=== PATIENT | male | born 1945 | race Caucasian/White ===

== ENCOUNTER 2023-03-28 10:12 | Inpatient (IN) | payer MEDICARE, OTHER ==
[~2023-03-28] VITALS: Ht 177 cm; Wt 78.9 kg
--- NOTE | 2023-03-28 10:18 | ED General ---
General Chief Complaint: Altered Mental Status Stated Complaint: UTI History of Present Illness Date Seen by Provider: Mar 28, 2023 Time Seen by Provider: 10:18 Initial Comments 78 yr M with PMH of multiple sclerosis/BPH/HTN/gout, is sent here by PCP from [facility] with c/o lethargy and fatigue, and generalized weakness. [facility] staff reported that patient smelled like urine and that the urine looked very cloudy. Patient has multiple sclerosis and has chronic baseline gait issues due to this, however today patient was moving much slower than usual and needing assistance so staff was concerned and contacted the PCP, who recommended he be taken to the ER for complete work-up. In the ER patient is AO x3 and able to answer all questions and follow all commands. Patient does not appear to be confused at all. Patient does appear tired however. Denies chest pain, palpitations, dizziness, abdominal pain, diarrhea, fever and chills, cough. Allergies and Home Medications Allergies Coded Allergies: Iodinated Contrast Media (Verified Allergy, Unknown, 03/28/23) Patient Home Medication List Home Medication List Reviewed: Yes Review of Systems Review of Systems Constitutional: malaise, weakness (Generalized) EENTM: no symptoms reported Respiratory: no symptoms reported Cardiovascular: no symptoms reported Gastrointestinal: no symptoms reported Genitourinary: no symptoms reported Musculoskeletal: no symptoms reported Skin: no symptoms reported Psychiatric/Neurological: No Symptoms Reported Hematologic/Lymphatic: No Symptoms Reported Immunological/Allergic: no symptoms reported Physical Exam Vital Signs Vital Signs - First Documented 03/28/23 10:34 Temp 36.3 Pulse 105 Resp 16 B/P (MAP) 116/84 (95) Pulse Ox 94 O2 Delivery Room Air Capillary Refill : Height, Weight, BMI Height: '" Weight: lbs. oz. kg; BMI Method: General Appearance: No Apparent Distress, WD/WN, Thin HEENT: PERRL/EOMI, Normal ENT Inspection Neck: Full Range of Motion, Normal Inspection, Non Tender, Supple Respiratory: Chest Non Tender, Lungs Clear, Normal Breath Sounds, No Accessory Muscle Use Cardiovascular: Regular Rate, Rhythm, Other (2+ bilateral pitting pedal edema) Gastrointestinal: Normal Bowel Sounds, Non Tender, Soft Back: No CVA Tenderness Extremity: Normal Range of Motion Neurologic/Psychiatric: Alert, Oriented x3, No Motor/Sensory Deficits, Normal Mood/Affect, coach operator II-XII Norm as Tested Skin: Normal Color Focused Exam Lactate Level 03/28/23 10:32: Lactic Acid Level 1.99 Lactic Acid Level Laboratory Tests Test 03/28/23 10:32 Lactic Acid Level 1.99 MMOL/L (0.50-2.00) Progress/Results/Core Measures Suspected Sepsis SIRS Temperature: Pulse: Respiratory Rate: Laboratory Tests 03/28/23 10:32: White Blood Count 64.9*H Blood Pressure / Mean: 03/28/23 10:32: Lactic Acid Level 1.99 Laboratory Tests 03/28/23 10:32: Creatinine 0.82, INR Comment 1.0, Platelet Count 281, Total Bilirubin 0.7 Results/Orders Lab Results Laboratory Tests Test 03/28/23 10:27 03/28/23 10:32 Range/Units Urine Color YELLOW Urine Clarity TURBID Urine pH 6.0 5-9 Urine Specific [place] 1.025 H 1.016-1.022 Urine Protein 2+ H NEGATIVE Urine Glucose (UA) NEGATIVE NEGATIVE Urine Ketones TRACE H NEGATIVE Urine Nitrite NEGATIVE NEGATIVE Urine Bilirubin NEGATIVE NEGATIVE Urine Urobilinogen 1.0 < = 1.0 MG/DL Urine Leukocyte Esterase 2+ H NEGATIVE Urine RBC (Auto) 3+ H NEGATIVE Urine RBC NONE /HPF Urine WBC TNTC H /HPF Urine Squamous Epithelial Cells 2-5 /HPF Urine Crystals NONE /LPF Urine Bacteria LARGE H /HPF Urine Casts NONE /LPF Urine Mucus NEGATIVE /LPF Urine Culture Indicated YES White Blood Count 64.9 *H 4.3-11.0 10^3/uL Red Blood Count 3.41 L 4.30-5.52 10^6/uL Hemoglobin 10.9 L 13.3-17.7 g/dL Hematocrit 34 L 40-54 % Mean Corpuscular Volume 99 80-99 fL Mean Corpuscular Hemoglobin 32 25-34 pg Mean Corpuscular Hemoglobin Concent 32 32-36 g/dL Red Cell Distribution Width 12.3 10.0-14.5 % Platelet Count 281 130-400 10^3/uL Mean Platelet Volume 9.9 9.0-12.2 fL Immature Granulocyte % (Auto) 0 % Neutrophils (%) (Auto) 17 L 42-75 % Lymphocytes (%) (Auto) 80 H 12-44 % Monocytes (%) (Auto) 2 0-12 % Eosinophils (%) (Auto) 0 0-10 % Basophils (%) (Auto) 0 0-10 % Neutrophils # (Auto) 10.8 H 1.8-7.8 10^3/uL Lymphocytes # (Auto) 52.1 H 1.0-4.0 10^3/uL Monocytes # (Auto) 1.6 H 0.0-1.0 10^3/uL Eosinophils # (Auto) 0.1 0.0-0.3 10^3/uL Basophils # (Auto) 0.1 0.0-0.1 10^3/uL Immature Granulocyte # (Auto) 0.3 H 0.0-0.1 10^3/uL Neutrophils % (Manual) 28 % Lymphocytes % (Manual) 68 % Monocytes % (Manual) 2 % Eosinophils % (Manual) 2 % Prothrombin Time 13.9 12.2-14.7 SEC INR Comment 1.0 0.8-1.4 Activated Partial Thromboplast Time 34 24-35 SEC Sodium Level 142 135-145 MMOL/L Potassium Level 4.1 3.6-5.0 MMOL/L Chloride Level 106 98-107 MMOL/L Carbon Dioxide Level 23 21-32 MMOL/L Anion Gap 13 5-14 MMOL/L Blood Urea Nitrogen 29 H 7-18 MG/DL Creatinine 0.82 0.60-1.30 MG/DL Estimat Glomerular Filtration Rate 90 BUN/Creatinine Ratio 35 Glucose Level 149 H 70-105 MG/DL Lactic Acid Level 1.99 0.50-2.00 MMOL/L Calcium Level 9.3 8.5-10.1 MG/DL Corrected Calcium 9.6 8.5-10.1 MG/DL Magnesium Level 2.2 1.6-2.4 MG/DL Total Bilirubin 0.7 0.1-1.0 MG/DL Aspartate Amino Transf (AST/SGOT) 35 H 5-34 U/L Alanine Aminotransferase (ALT/SGPT) 45 0-55 U/L Alkaline Phosphatase 174 H 40-136 U/L Troponin I < 0.30 <0.30 NG/ML Total Protein 7.5 6.4-8.2 GM/DL Albumin 3.6 3.2-4.5 GM/DL My Orders Orders - JULIETH BOOTH MD Cbc With Automated Diff (03/28/23 10:18) Comprehensive Metabolic Panel (03/28/23 10:18) Lactic Acid Analyzer (03/28/23 10:18) Magnesium (03/28/23 10:18) Protime With Inr (03/28/23 10:18) Partial Thromboplastin Time (03/28/23 10:18) Ua Culture If Indicated (03/28/23 10:18) Troponin I Fs (03/28/23 10:18) Chest 1 View Ap/Pa Only (03/28/23 10:19) Ct Head Wo (03/28/23 10:35) Ed Iv/Invasive Line Start (03/28/23 10:42) Ns Iv 1000 Ml (Sodium Chloride 0.9%) (03/28/23 10:45) Continuous Ekg Monitoring (03/28/23 10:43) Ekg Tracing (03/28/23 10:43) Manual Differential (03/28/23 10:32) Urine Culture (03/28/23 10:27) Piperacillin Sodium/Tazobactam (Zosyn Vi (03/28/23 11:15) Blood Culture (03/28/23 11:06) Ed Admission (Communication) (03/28/23 12:20) Medications Given in ED Current Medications Medications Dose Ordered Sig/Theresa Route Start Time Stop Time Status Last Admin Dose Admin Piperacillin Sod/ Tazobactam Sod 4.5 gm/Sodium Chloride 100 ml @ 200 mls/hr ONCE ONCE IV 03/28/23 11:15 03/28/23 11:44 DC 03/28/23 11:22 200 MLS/HR Vital Signs/I&O 03/28/23 10:34 Temp 36.3 Pulse 105 Resp 16 B/P (MAP) 116/84 (95) Pulse Ox 94 O2 Delivery Room Air Capillary Refill : Progress Note : Progress Note 1. GENERALIZED WEAKNESS due to: ACUTE CYSTITIS WITH HEMATURIA & PNEUMONIA, SEPSIS: - CT HEAD: no acute changes - CXR: Scattered patchy bilateral perihilar airspace opacities concerning for pneumonia. - CBC/ CMP: WBC is 64.9 with a left shift - Lactic acid is 1.99 which is borderline normal, but will admit for urosepsis since the white count is still high with a borderline lactic, and pneumonia - EKG: Non-ischemic - Troponin: undetectable - Blood culture sent - UA: Positive for trace ketones, leukocyte esterase, RBC, WBC, and bacteria - NS IVF bolus STAT. pt received 2 L total in ER - Zosyn iv STAT -Discussed with hospitalist and accepted for admission to ICU ECG Initial ECG Impression Date: Mar 28, 2023 Initial ECG Impression Time: 10:48 Initial ECG Rate: 93 Initial ECG Rhythm: Normal Sinus Initial ECG Intervals: Normal Initial ECG Impression: Normal Initial ECG Comparisson: No Previous ECG Available Diagnostic Imaging Diagonstic Imaging: Xray, CT Plain Films/CT/US/NM/MRI: chest, head Comments [facility] [place], [place] NAME: RAULITO GAUTHIER [facility] REC#: [id number] PT STATUS: REG ER : 1945 PHYSICIAN: JULIETH BOOTH MD ADMIT DATE: 03/28/23/ER FS Draft Date of Exam:03/28/23 CHEST 1 VIEW AP/PA ONLY INDICATION: Weakness. UTI. COMPARISON: None. FINDINGS: Single frontal radiographic view of the chest was obtained and demonstrates patchy bilateral perihilar opacities. No large effusion or pneumothorax is seen. Cardiac silhouette and pulmonary vasculature are within normal limits. Osseous structures show no gross acute abnormalities IMPRESSION: 1. Scattered patchy bilateral perihilar airspace opacities concerning for pneumonia. Follow-up to resolution is advised. Dictated on workstation # [id number] Dict: 03/28/23 1121 Trans: 03/28/23 1125 [facility] [id number] Interpreted by: DIANA SERRANO MD Electronically signed by: [facility] [place] [place] NAME: RAULITO GAUTHIER [facility] REC#: [id number] PT STATUS: REG ER : 1945 PHYSICIAN: JULIETH BOOTH MD ADMIT DATE: 03/28/23/ER FS Draft Date of Exam:03/28/23 CT HEAD WO PROCEDURE: CT head without contrast. TECHNIQUE: Multiple contiguous axial images were obtained through the brain without the use of intravenous contrast. Auto Exposure Controls were utilized during the CT exam to meet ALARA standards for radiation dose reduction. INDICATION: Weakness. No prior studies are available for comparison. Ventricles and sulci are prominent consistent with cerebral volume loss. Mild periventricular low attenuation is noted consistent with chronic microvascular ischemia. No sulcal effacement or midline shift is identified. No acute intra-axial or extra-axial hemorrhage is detected. Cisterns are patent. Visualized paranasal sinuses are clear. IMPRESSION: Chronic changes. No acute intracranial process is detected. Dictated on workstation # [id number] Dict: 03/28/23 1118 Trans: 03/28/23 1124 [facility] [id number] Interpreted by: ROMEL BARLOW MD Electronically signed by: Departure Communication (Admissions) Time/Spoke to Admitting Phy: 12:[address] Moses, hospitalist, and will admit to ICU, inpatient. Impression Primary Impression: Acute cystitis with hematuria Additional Impressions: Sepsis Qualified Codes: A41.9 - Sepsis, unspecified organism CAP (community acquired pneumonia) Qualified Codes: J18.9 - Pneumonia, unspecified organism Disposition: 30 STILL A PATIENT Condition: Stable Admissions Decision to Admit Reason: Admit from ER (General) Decision to Admit/Date: Mar 28, 2023 Time/Decision to Admit Time: 11:30 Transfer Method of Transfer: EMS Departure-Patient Inst. Referrals: GUMARO KAMARA MD (PCP) Primary Care Physician JULIETH BOOTH MD Mar 28, 2023 10:18
[2023-03-28 10:45] LABS: BASOPHILS # (AUTO) 0.1 10^3/uL (0.0-0.1); BASOPHILS % (AUTO) 0 % (0-10); EOSINOPHILS # (AUTO) 0.1 10^3/uL (0.0-0.3); EOSINOPHILS % (AUTO) 0 % (0-10); HEMATOCRIT 34 % (40-54); HEMOGLOBIN 10.9 g/dL (13.3-17.7); LYMPHOCYTES # (AUTO) 52.1 10^3/uL (1.0-4.0); LYMPHOCYTES % (AUTO) 80 % (12-44); MEAN CORPUSCULAR HEMOGLOBIN 32 pg (25-34); MEAN CORPUSCULAR HGB CONC 32 g/dL (32-36); MEAN CORPUSCULAR VOLUME 99 fL (80-99); MEAN PLATELET VOLUME 9.9 fL (9.0-12.2); MONOCYTES # (AUTO) 1.6 10^3/uL (0.0-1.0); MONOCYTES % (AUTO) 2 % (0-12); NEUTROPHILS # (AUTO) 10.8 10^3/uL (1.8-7.8); NEUTROPHILS % (AUTO) 17 % (42-75); PLATELET COUNT 281 10^3/uL (130-400)
[2023-03-28] MEDS ORDERED: NS IV 1000 ML 1,000 ML IV SCH ×2 (10:45→12:30)
[2023-03-28 10:46] LABS: BILIRUBIN,URINE NEGATIVE (NEGATIVE); CLARITY,URINE TURBID; COLOR,URINE YELLOW; GLUCOSE, URINE (UA) NEGATIVE (NEGATIVE); KETONES,URINE TRACE (NEGATIVE); LEUKOCYTE ESTERASE ,URINE 2+ (NEGATIVE); NITRITE,URINE NEGATIVE (NEGATIVE); PROTEIN,URINE 2+ (NEGATIVE)
[2023-03-28 10:46] LABS: WHITE BLOOD COUNT 64.9 10^3/uL (4.3-11.0)
[2023-03-28 10:50] LABS: BACTERIA,URINE LARGE /HPF; WBC,URINE TNTC /HPF
[2023-03-28 10:58] LABS: PROTHROMBIN TIME PATIENT 13.9 SEC (12.2-14.7)
[2023-03-28 11:02] LABS: EOSINOPHILS % (MANUAL) 2 %; LYMPHOCYTES % (MANUAL) 68 %; MONOCYTES % (MANUAL) 2 %; NEUTROPHILS % (MANUAL) 28 %
[2023-03-28 11:08] LABS: CHLORIDE 106 MMOL/L (98-107); POTASSIUM 4.1 MMOL/L (3.6-5.0); SODIUM 142 MMOL/L (135-145)
[2023-03-28 11:09] LABS: ALANINE AMINOTRANSFERASE 45 U/L (0-55); ALBUMIN 3.6 GM/DL (3.2-4.5); ALKALINE PHOSPHATASE 174 U/L (40-136); BILIRUBIN,TOTAL 0.7 MG/DL (0.1-1.0); BUN/CREATININE RATIO 35; CALCIUM 9.3 MG/DL (8.5-10.1); CARBON DIOXIDE 23 MMOL/L (21-32); CREATININE SERUM 0.82 MG/DL (0.60-1.30); GFR ESTIMATED 90; GLUCOSE 149 MG/DL (70-105); MAGNESIUM 2.2 MG/DL (1.6-2.4); TOTAL PROTEIN 7.5 GM/DL (6.4-8.2)
[2023-03-28] MEDS ORDERED: PIPERACILLIN SODIUM/TAZOBACTAM 4.5 GM in NS (IVPB) 100 ML IV ONE (11:15)
--- NOTE | 2023-03-28 11:25 | Diagnostic Imaging Report ---
PROCEDURE: CT head without contrast. TECHNIQUE: Multiple contiguous axial images were obtained through the brain without the use of intravenous contrast. Auto Exposure Controls were utilized during the CT exam to meet ALARA standards for radiation dose reduction. INDICATION: Weakness. No prior studies are available for comparison. Ventricles and sulci are prominent consistent with cerebral volume loss. Mild periventricular low attenuation is noted consistent with chronic microvascular ischemia. No sulcal effacement or midline shift is identified. No acute intra-axial or extra-axial hemorrhage is detected. Cisterns are patent. Visualized paranasal sinuses are clear. IMPRESSION: Chronic changes. No acute intracranial process is detected. Dictated by: Dictated on workstation # [id number]
--- NOTE | 2023-03-28 11:26 | Diagnostic Imaging Report ---
INDICATION: Weakness. UTI. COMPARISON: None. FINDINGS: Single frontal radiographic view of the chest was obtained and demonstrates patchy bilateral perihilar opacities. No large effusion or pneumothorax is seen. Cardiac silhouette and pulmonary vasculature are within normal limits. Osseous structures show no gross acute abnormalities IMPRESSION: 1. Scattered patchy bilateral perihilar airspace opacities concerning for pneumonia. Follow-up to resolution is advised. Dictated by: Dictated on workstation # [id number]
[2023-03-28] MEDS ORDERED: diphenhydrAMINE 25 MG TAB (BENADRYL) PO PRN (16:30)
[2023-03-28] MEDS ORDERED: MELATONIN 3 MG TABLET PO PRN (16:30)
[2023-03-28] MEDS ORDERED: BISACODYL 10 MG SUPP (DULCOLAX) PR PRN (16:30)
[2023-03-28] MEDS ORDERED: diphenhydrAMINE 50 MG/ML INJ (BENADRYL) IVP PRN (16:30)
[2023-03-28] MEDS ORDERED: polyethylene glycoL POWDER 17 GM (MIRALAX) PACK PO PRN (16:30)
[2023-03-28] MEDS ORDERED: VANCOMYCIN INJECTION 0.1 MG in NS (IVPB) 250 ML IV SCH (16:30)
[2023-03-28] MEDS ORDERED: ONDANSETRON 4 MG (ZOFRAN) ORAL DISSOLVE TAB PO PRN (16:30)
[2023-03-28] MEDS ORDERED: ONDANSETRON 4 MG/2 ML (SDV) Z0FRAN IV PRN (16:30)
[2023-03-28] MEDS ORDERED: ANTACID SUSP 30 ML UDC (MYLANTA) PO PRN (16:30)
[2023-03-28] MEDS ORDERED: NS IV 500 ML 500 ML IV PRN (16:30)
[2023-03-28] MEDS ORDERED: LORazepam INJ 2 MG/ML (ATIVAN) VIAL IVP PRN (16:30)
[2023-03-28 16:55] VITALS: BP 129/57
[2023-03-28] MEDS ORDERED: VANCOMYCIN 1250 MG/NS 250 ML PREMIX IV NR (17:00)
[2023-03-28] MEDS: ENOXAPARIN 40 MG/0.4 ML (LOVENOX) SYR SC SCH (17:14)
[2023-03-28] MEDS: PIPERACILLIN SODIUM/TAZOBACTAM 4.5 GM in NS (IVPB) 100 ML IV SCH (17:14)
[2023-03-28] MEDS ORDERED: RT-ALBUTEROL SULF 2.5 MG/3 ML PRE-MIX VIAL INH PRN (17:15)
--- NOTE | 2023-03-28 18:22 | History & Physical ---
History of Present Illness HPI/Chief Complaint Chief complaint: Sepsis HPI: This is a 78-year-old male [facility] resident at [facility] in [place] who presented with hypoxia and altered mental status found to have pneumonia and UTI with severely elevated white count. Patient was placed on broad-spectrum antibiotics to cover for facility acquired organisms. Sinus rhythm at bedside. Patient appears to be very thin. Patient denies any pain. Source: patient, family Exam Limitations: clinical condition Date Seen 03/28/23 Time Seen by a Provider: 18:00 Attending Physician Pascual Melendez MD PCP Admitting Physician: Nelly Moses DO Attending Physician: Nelly Moses DO Referring Physician Date of Admission Mar 28, 2023 at 16:20 Home Medications & Allergies Home Medications Reviewed patient Home Medication Reconciliation performed by pharmacy medication reconciliations thermoplastic technician and/or nursing. Patients Allergies have been reviewed. Allergies Allergies Coded Allergies Iodinated Contrast Media (Verified Allergy, Unknown, 03/28/23) Past Biwgjqa-Tzzbxu-Pduirc Hx Past Med/Social Hx: Reviewed Nursing Past Med/Soc Hx, Reviewed and Corrections made Patient Social History Marrital Status: single Employed/Student: retired Alcohol Use: Denies Use Smoking Status: Never a Smoker Recent Foreign Travel: No Contact w/other who traveled: No Past Medical History Neurological: Dementia Review of Systems Constitutional: see HPI Physical Exam Physical Exam Vital Signs Vital Signs - First Documented 03/28/23 03/28/23 03/28/23 10:34 16:55 22:36 Temp 36.3 Pulse 105 Resp 16 B/P (MAP) 116/84 (95) Pulse Ox 94 O2 Delivery Room Air O2 Flow Rate 2.00 FiO2 21 Capillary Refill : Less Than 3 Seconds Height, Weight, BMI Height: '" Weight: lbs. oz. kg; 20.33 BMI Method: General Appearance: No Apparent Distress, WD/WN, Chronically ill, Cachetic, Thin HEENT: PERRL/EOMI, Normal ENT Inspection Neck: Full Range of Motion, Normal Inspection, Non Tender, Supple Respiratory: Chest Non Tender, Lungs Clear, Normal Breath Sounds, No Accessory Muscle Use Cardiovascular: Regular Rate, Rhythm, Other (2+ bilateral pitting pedal edema) Gastrointestinal: Normal Bowel Sounds, Non Tender, Soft Back: No CVA Tenderness Extremity: Normal Range of Motion Neurologic/Psychiatric: Alert, Oriented x3, No Motor/Sensory Deficits, Normal Mood/Affect, water control station engineer II-XII Norm as Tested Skin: Normal Color Results Results/Procedures Labs Laboratory Tests 03/28/23 10:32 03/29/23 04:07 Patient resulted labs reviewed. Assessment/Plan Admission Diagnosis Assessment: Sepsis Pneumonia Complicated UTI Chronic debility Advanced age Plan: Broad-spectrum antibiotics ICU monitoring Supportive care Admission Status: Inpatient Order (span 2 midnights) Reason for Inpatient Admission: Sepsis NELLY MOSES DO Mar 28, 2023 18:22
[2023-03-28] MEDS: DOCUSATE SODIUM 100 MG (COLACE) CAP PO SCH (21:00)
[2023-03-28] MEDS: LORazepam 0.5 MG (ATIVAN) TABLET PO PRN (23:20)
[2023-03-28] MEDS: ACETAMINOPHEN 325 MG TABLET PO PRN (23:20)
[2023-03-29] MEDS: PIPERACILLIN SODIUM/TAZOBACTAM 4.5 GM in NS (IVPB) 100 ML IV SCH ×3 (03:02→16:46)
[2023-03-29 04:55] LABS: BASOPHILS # (AUTO) 0.1 10^3/uL (0.0-0.1); BASOPHILS % (AUTO) 0 % (0-10); EOSINOPHILS # (AUTO) 0.3 10^3/uL (0.0-0.3); EOSINOPHILS % (AUTO) 1 % (0-10); HEMATOCRIT 30 % (40-54); HEMOGLOBIN 9.8 g/dL (13.3-17.7); LYMPHOCYTES # (AUTO) 42.9 10^3/uL (1.0-4.0); LYMPHOCYTES % (AUTO) 81 % (12-44); MEAN CORPUSCULAR HEMOGLOBIN 32 pg (25-34); MEAN CORPUSCULAR HGB CONC 32 g/dL (32-36); MEAN CORPUSCULAR VOLUME 100 fL (80-99); MEAN PLATELET VOLUME 10.3 fL (9.0-12.2); MONOCYTES # (AUTO) 1.2 10^3/uL (0.0-1.0); MONOCYTES % (AUTO) 2 % (0-12); NEUTROPHILS # (AUTO) 8.2 10^3/uL (1.8-7.8); NEUTROPHILS % (AUTO) 15 % (42-75); PLATELET COUNT 277 10^3/uL (130-400)
[2023-03-29 05:13] LABS: ALBUMIN 3.1 GM/DL (3.2-4.5); BILIRUBIN,TOTAL 0.6 MG/DL (0.1-1.0); CALCIUM 8.8 MG/DL (8.5-10.1); CREATININE SERUM 0.76 MG/DL (0.60-1.30); MAGNESIUM 2.1 MG/DL (1.6-2.4); PHOSPHORUS 3.6 MG/DL (2.3-4.7); POTASSIUM 3.8 MMOL/L (3.6-5.0); TOTAL PROTEIN 6.2 GM/DL (6.4-8.2)
[2023-03-29 05:17] LABS: WHITE BLOOD COUNT 52.8 10^3/uL (4.3-11.0)
[2023-03-29] MEDS ORDERED: POTASSIUM BICARB 20 MEQ (EFFER-K) TABLET PO ONE (05:45)
[2023-03-29] MEDS ORDERED: POTASSIUM CL 10MEQ/50ML IVPB 50 ML IV SCH (06:00)
[2023-03-29] MEDS ORDERED: MAGNESIUM 1 GM/100 ML IVPB 100 ML IV SCH (06:00)
[2023-03-29] MEDS ORDERED: KCL 20 MEQ TAB (K-DUR) PO SCH (06:00)
--- NOTE | 2023-03-29 07:19 | Progress Note ---
Subjective Date Seen by a Provider: Mar 29, 2023 Time Seen by a Provider: 11:00 Subjective/Events-last exam Patient doing a lot better I asked him if he has a history of CLL and he is unsure IV antibiotics maintained PT and OT will be ordered Review of Systems General: Fatigue, Malaise Focused Exam Lactate Level 03/28/23 10:32: Lactic Acid Level 1.99 Objective Exam Last Set of Vital Signs Vital Signs Date Time Temp Pulse Resp B/P (MAP) Pulse Ox O2 Delivery O2 Flow Rate FiO2 03/29/23 06:00 97 19 131/102 (112) 94 Nasal Cannula 2.00 03/28/23 23:50 37.1 03/28/23 19:04 21 Capillary Refill : Less Than 3 Seconds I&O Intake and Output 03/29/23 00:00 Intake Total 1850 ml Output Total 650 ml Balance 1200 ml Intake Oral 400 ml IV Total 1450 ml Output Urine Total 650 ml # Voids 3 Daily Weight Change No General: Alert, Oriented X3, Cooperative, No Acute Distress Lungs: Clear to Auscultation, Normal Air Movement Heart: Regular Rate, Normal S1, Normal S2, No Murmurs Psych/Mental Status: Mental Status NL, Mood NL Results Lab Laboratory Tests 03/28/23 10:27: Urine Color YELLOW, Urine Clarity TURBID, Urine pH 6.0, Urine Specific [place] 1.025H, Urine Protein 2+H, Urine Glucose (UA) NEGATIVE, Urine Ketones TRACEH, Urine Nitrite NEGATIVE, Urine Bilirubin NEGATIVE, Urine Urobilinogen 1.0, Urine Leukocyte Esterase 2+H, Urine RBC (Auto) 3+H, Urine RBC NONE, Urine WBC TNTCH, U rine Squamous Epithelial Cells 2-5, Urine Crystals NONE, Urine Bacteria LARGEH, Urine Casts NONE, Urine Mucus NEGATIVE, Urine Culture Indicated YES 03/28/23 10:32: White Blood Count 64.9*H, Red Blood Count 3.41L, Hemoglobin 10.9L, Hematocrit 34L, Mean Corpuscular Volume 99, Mean Corpuscular Hemoglobin 32, Mean Corpuscular Hemoglobin Concent 32, Red Cell Distribution Width 12.3, Platelet Count 281, Mean Platelet Volume 9.9, Immature Granulocyte % (Auto) 0, Neutrophils (%) (Auto) 17L, Lymphocytes (%) (Auto) 80H, Monocytes (%) (Auto) 2, Eosinophils (%) (Auto) 0, Basophils (%) (Auto) 0, Neutrophils # (Auto) 10.8H, Lymphocytes # (Auto) 52.1H, Monocytes # (Auto) 1.6H, Eosinophils # (Auto) 0.1, Basophils # (Auto) 0.1, Immature Granulocyte # (Auto) 0.3H, Neutrophils % (Manual) 28, Lymphocytes % (Manual) 68, Monocytes % (Manual) 2, Eosinophils % (Manual) 2, Prothrombin Time 13.9, INR Comment 1.0, Activated Partial Thr omboplast Time 34, Sodium Level 142, Potassium Level 4.1, Chloride Level 106, Carbon Dioxide Level 23, Anion Gap 13, Blood Urea Nitrogen 29H, Creatinine 0.82, Estimat Glomerular Filtration Rate 90, BUN/Creatinine Ratio 35, Glucose Level 149H, Lactic Acid Level 1.99, Calcium Level 9.3, Corrected Calcium 9.6, Magnesium Level 2.2, Total Bilirubin 0.7, Aspartate Amino Transf (AST/SGOT) 35H, Alanine Aminotransferase (ALT/SGPT) 45, Alkaline Phosphatase 174H, Troponin I < 0.30, Total Protein 7.5, Albumin 3.6 03/29/23 04:07: White Blood Count 52.8*H, Red Blood Count 3.04L, Hemoglobin 9.8L, Hematocrit 30L , Mean Corpuscular Volume 100H, Mean Corpuscular Hemoglobin 32, Mean Corpuscular Hemoglobin Concent 32, Red Cell Distribution Width 12.5, Platelet Count 277, Mean Platelet Volume 10.3, Immature Granulocyte % (Auto) 1, Neutrophils (%) (Auto) 15L, Lymphocytes (%) (Auto) 81H, Monocytes (%) (Auto) 2, Eosinophils (%) (Auto) 1, Basophils (%) (Auto) 0, Neutrophils # (Auto) 8.2H, Lymphocytes # (Auto) 42.9H, Monocytes # (Auto) 1.2H, Eosinophils # (Auto) 0.3, Basophils # (Auto) 0.1, Immature Granulocyte # (Auto) 0.3H, Sodium Level 144, Potassium Level 3.8, Chloride Level 112H, Carbon Dioxide Level 20L, Anion Gap 12, Blood Urea Nitrogen 24H, Creatinine 0.76, Estimat Glomerular Filtration Rate 92, BUN/Creatinine Ratio 32, Glucose Level 97, Calcium Level 8.8, Corrected Calcium 9.5, Magnesium Level 2.1, Total Bilirubin 0.6, Aspartate Amino Transf (AST/SGOT) 28, Alanine Aminotransferase (ALT/SGPT) 40, Alkaline Phosphatase 129, Total Protein 6.2L, Albumin 3.1L, Phosphorus Level 3.6 Assessment/Plan Assessment/Plan Assess & Plan/Chief Complaint Assessment: Sepsis Pneumonia Complicated UTI Chronic debility Advanced age CLL? MS Plan: Broad-spectrum antibiotics Fourth floor Supportive care ARSALAN PARSONS DO Mar 29, 2023 07:19
[2023-03-29] MEDS: DOCUSATE SODIUM 100 MG (COLACE) CAP PO SCH ×2 (07:36→19:46)
[2023-03-29] MEDS: HYDROmorphone 2 MG/ML VIAL (DILAUDID) IV PRN ×3 (07:36→16:49)
[2023-03-29 07:38] LABS: ABSOLUTE RETIC # 32 10e9/uL (24-90); RETICULOCYTE % 1.04 % (0.50-2.40)
[2023-03-29 08:13] LABS: BAND NEUTROPHILS 0 %; BASOPHILS % (MANUAL) 0 %; EOSINOPHILS % (MANUAL) 0 %; LYMPHOCYTES % (MANUAL) 76 %; MONOCYTES % (MANUAL) 3 %; NEUTROPHILS % (MANUAL) 21 %
--- NOTE | 2023-03-29 09:44 | Diagnostic Imaging Report ---
INDICATION: Respiratory distress. Study compared 03/28/2023. FINDINGS: While there is underlying COPD as a chronic finding there are new bilateral infiltrates in the medial apices as well as most notably in the infrahilar right lower lobe most consistent with pneumonia. The heart size stable. There is blunting of the left angle likely an at least small left pleural effusion. There is incidental interposition of the hepatic flexure of the colon between the dome of the right lobe of the liver and the right hemidiaphragm. IMPRESSION: Bilateral pneumonia superimposed upon chronic lung disease, probable small left effusion. Dictated by: Dictated on workstation # [id number]
[2023-03-29] MEDS: ENOXAPARIN 40 MG/0.4 ML (LOVENOX) SYR SC SCH (16:44)
[2023-03-29] MEDS: VANCOMYCIN 1250 MG/NS 250 ML PREMIX IV SCH (16:45)
[2023-03-29] MEDS: LORazepam 0.5 MG (ATIVAN) TABLET PO PRN (19:46)
[2023-03-29 20:04] VITALS: BP 117/67
[2023-03-30] VITALS (8 sets, daily range): BP systolic 90–145; BP diastolic 51–72
[2023-03-30] MEDS: PIPERACILLIN SODIUM/TAZOBACTAM 4.5 GM in NS (IVPB) 100 ML IV SCH ×3 (02:04→18:00)
[2023-03-30 06:24] LABS: BASOPHILS # (AUTO) 0.1 10^3/uL (0.0-0.1); BASOPHILS % (AUTO) 0 % (0-10); EOSINOPHILS % (AUTO) 0 % (0-10); HEMATOCRIT 33 % (40-54); HEMOGLOBIN 10.4 g/dL (13.3-17.7); LYMPHOCYTES % (AUTO) 64 % (12-44); MEAN CORPUSCULAR HEMOGLOBIN 32 pg (25-34); MEAN CORPUSCULAR HGB CONC 32 g/dL (32-36); MEAN CORPUSCULAR VOLUME 102 fL (80-99); MONOCYTES # (AUTO) 2.1 10^3/uL (0.0-1.0); MONOCYTES % (AUTO) 3 % (0-12); NEUTROPHILS # (AUTO) 23.4 10^3/uL (1.8-7.8); NEUTROPHILS % (AUTO) 31 % (42-75); PLATELET COUNT 357 10^3/uL (130-400)
--- NOTE | 2023-03-30 06:28 | Progress Note ---
Subjective Date Seen by a Provider: Mar 30, 2023 Time Seen by a Provider: 09:00 Subjective/Events-last exam Patient doing a little better Has some difficulty swallowing which resulted in some emesis this morning May need to start IV fluids again Elevated white count appears to be certainly a CLL type we will try to review his clinic chart and evaluate if this is a new diagnosis or it is known Review of Systems General: Fatigue, Malaise Focused Exam Lactate Level 03/28/23 10:32: Lactic Acid Level 1.99 Objective Exam Last Set of Vital Signs Vital Signs Date Time Temp Pulse Resp B/P (MAP) Pulse Ox O2 Delivery O2 Flow Rate FiO2 03/30/23 04:00 36.8 102 18 133/69 (90) 94 Nasal Cannula 2.00 03/28/23 19:04 21 Capillary Refill : Less Than 3 Seconds I&O Intake and Output0 03/30/23 00:00 Intake Total 900 ml Output Total 700 ml Balance 200 ml Intake Oral 900 ml Output Urine Total 700 ml General: Alert, Oriented X3, Cooperative, No Acute Distress Lungs: Clear to Auscultation, Normal Air Movement Heart: Regular Rate, Normal S1, Normal S2, No Murmurs Psych/Mental Status: Mental Status NL, Mood NL Results Lab Laboratory Tests 03/29/23 19:52: Glucometer 144H 03/30/23 05:36: Microbiology 03/28/23 MRSA Screen - Final, Complete MRSA not isolated 03/28/23 Blood Culture - Preliminary, Resulted No growth Assessment/Plan Assessment/Plan Assess & Plan/Chief Complaint Assessment: Sepsis Pneumonia Complicated UTI Chronic debility Advanced age CLL? MS Dysphagia Plan: Broad-spectrum antibiotics Fourth floor Supportive care ARSALAN PARSONS DO Mar 30, 2023 06:28
[2023-03-30 06:33] LABS: WHITE BLOOD COUNT 74.4 10^3/uL (4.3-11.0)
[2023-03-30 06:36] LABS: ALBUMIN 3.3 GM/DL (3.2-4.5); BILIRUBIN,TOTAL 1.2 MG/DL (0.1-1.0); CALCIUM 9.2 MG/DL (8.5-10.1); CREATININE SERUM 1.34 MG/DL (0.60-1.30); MAGNESIUM 2.2 MG/DL (1.6-2.4); POTASSIUM 3.6 MMOL/L (3.6-5.0); TOTAL PROTEIN 6.7 GM/DL (6.4-8.2)
[2023-03-30] MEDS: DOCUSATE SODIUM 100 MG (COLACE) CAP PO SCH ×2 (08:53→19:58)
[2023-03-30] MEDS ORDERED: TROUGH ORDER-PHARMACY XX NR (16:00)
[2023-03-30] MEDS: ACETAMINOPHEN 325 MG TABLET PO PRN (16:29)
[2023-03-30] MEDS: ENOXAPARIN 40 MG/0.4 ML (LOVENOX) SYR SC SCH (16:30)
[2023-03-30] MEDS: VANCOMYCIN 1250 MG/NS 250 ML PREMIX IV SCH (16:30)
[2023-03-31] VITALS (7 sets, daily range): BP systolic 117–131; BP diastolic 53–68
[2023-03-31] MEDS: PIPERACILLIN SODIUM/TAZOBACTAM 4.5 GM in NS (IVPB) 100 ML IV SCH ×3 (02:04→18:18)
--- NOTE | 2023-03-31 05:51 | Progress Note ---
Subjective Date Seen by a Provider: Mar 31, 2023 Time Seen by a Provider: 09:00 Subjective/Events-last exam No major changes Updated son Gerald at 1145am CLL is known and no treatment has been required Poor recall in memory noted Review of Systems General: Fatigue, Malaise Neurological: Confusion Focused Exam Lactate Level 03/28/23 10:32: Lactic Acid Level 1.99 Objective Exam Last Set of Vital Signs Vital Signs Date Time Temp Pulse Resp B/P (MAP) Pulse Ox O2 Delivery O2 Flow Rate FiO2 03/31/23 04:05 36.4 90 16 117/56 (76) 95 Room Air 03/30/23 07:24 0.00 03/28/23 19:04 21 Capillary Refill : Less Than 3 Seconds I&O Intake and Output 03/31/23 00:00 Intake Total 2780 ml Output Total 2150 ml Balance 630 ml Intake Oral 2580 ml IV Total 200 ml Output Urine Total 2150 ml # Bowel Movements 1 General: Alert, Oriented X3, Cooperative, No Acute Distress, Other (thin, frail) Lungs: Clear to Auscultation, Normal Air Movement Heart: Regular Rate, Normal S1, Normal S2, No Murmurs Psych/Mental Status: Mental Status NL, Mood NL, Other (poor recall) Results Lab Microbiology 03/28/23 MRSA Screen - Final, Complete MRSA not isolated 03/28/23 Blood Culture - Preliminary, Resulted No growth 03/28/23 Urine Culture - Final, Complete Aerococcus urinaehominis Mixed Bacterial Annmarie Assessment/Plan Assessment/Plan Assess & Plan/Chief Complaint Assessment: Sepsis Pneumonia Complicated UTI Chronic debility Advanced age 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
[2023-03-31 06:11] LABS: BASOPHILS # (AUTO) 0.1 10^3/uL (0.0-0.1); BASOPHILS % (AUTO) 0 % (0-10); EOSINOPHILS # (AUTO) 0.6 10^3/uL (0.0-0.3); EOSINOPHILS % (AUTO) 1 % (0-10); HEMATOCRIT 28 % (40-54); LYMPHOCYTES # (AUTO) 50.6 10^3/uL (1.0-4.0); LYMPHOCYTES % (AUTO) 72 % (12-44); MEAN CORPUSCULAR HEMOGLOBIN 33 pg (25-34); MEAN CORPUSCULAR HGB CONC 33 g/dL (32-36); MEAN CORPUSCULAR VOLUME 101 fL (80-99); MEAN PLATELET VOLUME 9.8 fL (9.0-12.2); MONOCYTES # (AUTO) 1.2 10^3/uL (0.0-1.0); MONOCYTES % (AUTO) 2 % (0-12); NEUTROPHILS # (AUTO) 17.2 10^3/uL (1.8-7.8); NEUTROPHILS % (AUTO) 25 % (42-75); PLATELET COUNT 329 10^3/uL (130-400)
[2023-03-31 06:20] LABS: WHITE BLOOD COUNT 70.2 10^3/uL (4.3-11.0)
[2023-03-31 06:22] LABS: ALBUMIN 2.9 GM/DL (3.2-4.5)
[2023-03-31 06:23] LABS: POTASSIUM 3.2 MMOL/L (3.6-5.0)
[2023-03-31 06:25] LABS: TOTAL PROTEIN 5.9 GM/DL (6.4-8.2)
[2023-03-31 06:27] LABS: BILIRUBIN,TOTAL 0.7 MG/DL (0.1-1.0)
[2023-03-31 06:29] LABS: CREATININE SERUM 0.79 MG/DL (0.60-1.30)
[2023-03-31 06:31] LABS: MAGNESIUM 1.9 MG/DL (1.6-2.4)
[2023-03-31] MEDS: DOCUSATE SODIUM 100 MG (COLACE) CAP PO SCH ×2 (08:30→19:23)
[2023-03-31] MEDS ORDERED: FLUT15.845 NS (10:29)
[2023-03-31] MEDS ORDERED: MULT-422 PO (10:30)
[2023-03-31] MEDS ORDERED: ACET-2267 PO (10:31)
[2023-03-31] MEDS ORDERED: CARB1DRO51 OP (10:35)
[2023-03-31] MEDS ORDERED: DALF10TA3 PO (10:37)
[2023-03-31] MEDS ORDERED: GLUC100016 PO (10:39)
[2023-03-31] MEDS ORDERED: POLY17PO6 PO (10:40)
[2023-03-31] MEDS ORDERED: BACL20TA PO (10:41)
[2023-03-31] MEDS ORDERED: MENT120C2 TP (10:53)
--- NOTE | 2023-03-31 12:56 | Speech Therapy Progress Note ---
Therapy Progress Note Occupational therapy contacted the clinician with concerns regarding this patient's oropharyngeal swallowing function. Per chart review, the patient "experienced some difficulty swallowing," is currently being treated for pneumonia, and appears to be "very thin." At this time, the patient is receiving a regular consistency diet with thin liquids. If swallowing concerns are present, please place an order for a clinical bedside swallowing evaluation. SILVINO SANDOVAL Mar 31, 2023 12:56
--- NOTE | 2023-03-31 14:18 | Physical Therapy Evaluation ---
PT Evaluation-General Medical Diagnosis Admission Date Mar 28, 2023 at 16:20 Medical Diagnosis: sepsis Onset Date: Mar 28, 2023 Therapy Diagnosis Therapy Diagnosis: generalized weakness/debility Precautions Precautions/Isolations: Fall Prevention, Standard Precautions Referral Physician: Josué Reason for Referral: Evaluation/Treatment Medical History Pertinent Medical History: Dementia Additional Medical History MS Current History ER secondary to lethargy and fatigue Reviewed History: Yes Social History Home: Residential Prior Prior Level of Function SCALE: Activities may be completed with or without assistive devices. 8-Ydaytodhbh-osrgqbi completes the activity by him/herself with no assistance from a helper. 5-Set-up or Clean-up Assistance-helper sets up or cleans up; patient completes activity. [place] assists only prior to or following the activity. 4-Supervision or Touching Assistance-helper provides verbal cues and/or touching/steadying and/or contact guard assistance as patient completes act ivity. Assistance may be provided throughout the activity or intermittently. 3-Partial/Moderate Assistance-helper does LESS THAN HALF the effort. [place] lifts, holds or supports trunk or limbs, but provides less than half the effort. 2-Substantial/Maximal Assistance-helper does MORE THAN HALF the effort. [place] lifts or holds trunk or limbs and provides more than half the effort. 3-Divpfpkgt-hhsmny does ALL the effort. Patient does none of the effort to complete the activity. Or, the assistance of 2 or more helpers is required for the patient to complete the activity. If activity was not attempted, code reason: 7-Patient Refused. 9-Not Applicable-not attempted and the patient did not perform the activity before the current illness, exacerbation or injury. 10-Not Attempted due to Environmental Limitations-(lack of equipment, weather restraints, etc.). 88-Not Attempted due to Medical Conditions or Safety Concerns. Bed Mobility: 2 Transfers (B,C,W/C): 2 PT Evaluation-Current Subjective Patient incontinent BM and urine requiring dependent assist to cleanse patient and change bedding and clothing. Objective Patient Orientation: Confused Attachments: IV ROM/Strength ROM Lower Extremities bilateral LE WFL (noted rigidity due to tone) Strength Lower Extremities unable to test due to inability follow simple direction Integumentary/Posture Bowel Incontinence: Yes Bladder Incontinence: Yes Neuromuscular (Tone, Coordination, Reflexes) severely diminished with all (very rigid, unable to follow simple direction) Sensory Vision: Wears Glasses Hearing: Functional Transfers Roll Left to Right (QC): 1 (x 2) Sit to Lying (QC): 1 (x 2) Lying to Sitting/Side of Bed(Q: 1 (x 2) Sit to Stand (QC): 1 (x 2 unable to attain with patient demonstrating severe retropulsive behavior with inability to correct) Gait Does the Patient Walk?: No and Walking Goal IS indicated Balance Sitting Static: Poor Sitting Dynamic: Poor Standing Static: Poor Assessment/Needs Patient is currently dependent of 2 with all mobility and is unable to stand or perform OOB activity safely at this time. Patient would benefit from skilled PT to address functional strength and mobility to improve current LOF. Rehab Potential: Guarded PT Mcfp Goals Uptwist Spinner Goals PT Mcfp Goals Time Frame: Apr 19, 2023 Roll Left & Right (QC): 3 Sit to Lying (QC): 3 Lying-Sitting on Side/Bed(QC): 3 Sit to Stand (QC): 3 Chair/Gdo-pv-Kssxk Xfer(QC): 3 Toilet Transfer (QC): 3 Walk 10 feet (QC): 3 Walk 50ft with 2 Turns (QC): 3 PT Plan Problem List Problem List: Activity Tolerance, Functional Strength, Safety, Balance, Gait, Transfer, Bed Mobility Treatment/Plan Treatment Plan: Continue Plan of Care Treatment Plan: Bed Mobility, Education, Functional Activity [place], Functional Strength, Gait, Safety, Therapeutic Exercise, Transfers Treatment Duration: Apr 19, 2023 Frequency: 5 times per week Estimated Hrs Per Day: .25 hour per day Time Time In: 1312 Time Out: 1337 DATE: Mar 31, 2023 Total Billed Treatment Time: 25 Total Billed Treatment 1 visit EVModC 10 min FA 15 min LUCILLE OTERO PT Mar 31, 2023 14:18
--- NOTE | 2023-03-31 15:56 | Occupational Therapy Eval ---
OT Evaluation-General/PLF Medical Diagnosis Admission Date Mar 28, 2023 at 16:20 Medical Diagnosis: sepsis Onset Date: Mar 28, 2023 Therapy Diagnosis Therapy Diagnosis: weakness Precautions Precautions/Isolations: Fall Prevention, Standard Precautions Weight Bear Status Weight Bearing Restriction: Weight Bearing/Tolerated Location Restriction: LE Bilateral DOES NOT STAND FOR THERAPY Referral Physician: Josué Referral Reason: Self Care, Evaluation/Treatment Referral Comments Recommend ST consult d/t having difficulty swallowing Medical History Pertinent Medical History: Dementia Current History AMS, cystitis, UTI, [facility] [place] Reviewed History: Yes Social History Home: Detention ADL-Prior Level of Function SCALE: Activities may be completed with or without assistive devices. 2-Kouxprmidi-qvurcqf completes the activity by him/herself with no assistance from a helper. 5-Set-up or Clean-up Assistance-helper sets up or cleans up; patient completes activity. [place] assists only prior to or following the activity. 4-Supervision or Touching Assistance-helper provides verbal cues and/or touching/steadying and/or contact guard assistance as patient completes activity. Assistance may be provided throughout the activity or intermittently. 3-Partial/Moderate Assistance-helper does LESS THAN HALF the effort. [place] lifts, holds or supports trunk or limbs, but provides less than half the effort. 2-Substantial/Maximal Assistance-helper does MORE THAN HALF the effort. [place] lifts or holds trunk or limbs and provides more than half the effort. 9-Ylykkftoq-gdzwpj does ALL the effort. Patient does none of the effort to complete the activity. Or, the assistance of 2 or more helpers is required for the patient to complete the activity. If activity was not attempted, code reason: 7-Patient Refused. 9-Not Applicable-not attempted and the patient did not perform the activity before the current illness, exacerbation or injury. 10-Not Attempted due to Environmental Limitations-(lack of equipment, weather restraints, etc.). 88-Not Attempted due to Medical Conditions or Safety Concerns. Self Care: Needed Some Help Functional Cognition: Needed Some Help OT Current Status Subjective Minimally communicative, agreeable to OT Mental Status/Objective Patient Orientation: Person Family had been present but has left Current Upper Extremity ROM Unable to fully access d/t patient not following commands and instruction for OT ADL-Treatment Eating (QC): 88 (refer to ST) Oral Hygiene (QC): 88 Shower/Bathe Self (QC): 7 Upper Body Dressing (QC): 1 Lower Body Dressing (QC): 1 On/Off Footwear (QC): 1 Toileting Hygiene (QC): 1 Require 2 person transfer additional; assist for garments and hygiene, best to roll and perform LB ADLS with 2 persons Education OT Patient Education: Correct positioning, Instructions to caregiver, Modified ADL techniques, Progress toward Goal/Update tx plan, Purpose of tx/functional activities, Reviewed precautions, Rehab process, Safety issues, Transfer techniques, Use of adapted equipment Teaching Recipient: Patient Teaching Methods: Demonstration, Discussion Response to Teaching: Reinforcement Needed OT Correction Goals Residential Concierge Goals Eating (QC): 4 Oral Hygiene (QC): 4 Toileting Hygiene (QC): 2 Shower/Bathe Self (QC): 2 Upper Body Dressing (QC): 3 Lower Body Dressing (QC): 2 On/Off Footwear (QC): 2 1=Demonstrate adherence to instructed precautions during ADL tasks. 2=Patient will verbalize/demonstrate understanding of assistive devices/modifications for ADL. 3=Patient will improve strength/tolerance for activity to enable patient to perform ADL's. OT Education/Plan Problem List/Assessment Assessment: Decreased Activ Tolerance, Decreased Safety Aware, Decreased UE Strength, Dependent Transfers, Impaired Bed Mobility, Impaired Cognition, Impaired Coordination, Impaired Funct Balance, Impaired Self-Care Skills Discharge Recommendations Plan/Recommendations: Continue POC Treatment Plan/Plan of Care Patient would benefit from OT for education, treatment and training to promote independence in ADL's, mobility, safety and/or upper extremity function for ADL's. Plan of Care: ADL Retraining, Functional Mobility, Group Exercise/Act as Ind, UE Funct Exercise/Act Treatment Duration: Mar 31, 2023 Frequency: 3 times per week (3-5 times per week) Estimated Hrs Per Day: .25 hour per day Agreement: Yes Rehab Potential: Guarded Time Start Time: 13:12 Stop Time: 13:37 DATE: Mar 31, 2023 Total Time Billed (hr/min): 25 Billed Treatment Time EVM, ADL 25 min JESUS FIGUEROA OT Mar 31, 2023 15:56
[2023-03-31] MEDS ORDERED: TROUGH ORDER-PHARMACY XX NR (16:00)
[2023-03-31] MEDS: ENOXAPARIN 40 MG/0.4 ML (LOVENOX) SYR SC SCH (16:44)
[2023-04-01] MEDS: PIPERACILLIN SODIUM/TAZOBACTAM 4.5 GM in NS (IVPB) 100 ML IV SCH ×2 (01:55→09:31)
[2023-04-01 03:21] VITALS: BP 122/56
[2023-04-01 05:50] LABS: BASOPHILS # (AUTO) 0.1 10^3/uL (0.0-0.1); BASOPHILS % (AUTO) 0 % (0-10); EOSINOPHILS # (AUTO) 0.5 10^3/uL (0.0-0.3); EOSINOPHILS % (AUTO) 1 % (0-10); HEMATOCRIT 27 % (40-54); HEMOGLOBIN 8.7 g/dL (13.3-17.7); LYMPHOCYTES # (AUTO) 49.9 10^3/uL (1.0-4.0); LYMPHOCYTES % (AUTO) 79 % (12-44); MEAN CORPUSCULAR HEMOGLOBIN 32 pg (25-34); MEAN CORPUSCULAR HGB CONC 32 g/dL (32-36); MEAN CORPUSCULAR VOLUME 101 fL (80-99); MEAN PLATELET VOLUME 9.4 fL (9.0-12.2); MONOCYTES % (AUTO) 2 % (0-12); NEUTROPHILS # (AUTO) 11.6 10^3/uL (1.8-7.8); NEUTROPHILS % (AUTO) 18 % (42-75); PLATELET COUNT 361 10^3/uL (130-400)
[2023-04-01 06:07] LABS: ALBUMIN 2.8 GM/DL (3.2-4.5); BILIRUBIN,TOTAL 0.6 MG/DL (0.1-1.0); CALCIUM 8.7 MG/DL (8.5-10.1); CREATININE SERUM 0.71 MG/DL (0.60-1.30); MAGNESIUM 1.9 MG/DL (1.6-2.4); POTASSIUM 3.2 MMOL/L (3.6-5.0); TOTAL PROTEIN 5.7 GM/DL (6.4-8.2)
--- NOTE | 2023-04-01 06:10 | Progress Note ---
Subjective Date Seen by a Provider: Apr 01, 2023 Time Seen by a Provider: 11:00 Objective Exam Last Set of Vital Signs Vital Signs Date Time Temp Pulse Resp B/P (MAP) Pulse Ox O2 Delivery O2 Flow Rate FiO2 04/01/23 03:21 36.4 88 18 122/56 (78) 94 Room Air 0.00 0.00 03/31/23 23:39 21 Capillary Refill : Less Than 3 Seconds I&O Intake and Output 04/01/23 00:00 Intake Total 1655 ml Output Total 600 ml Balance 1055 ml Intake Oral 1555 ml IV Total 100 ml Output Urine Total 600 ml # Voids 3 # Bowel Movements 2 Results Lab Laboratory Tests 04/01/23 05:38: Sodium Level 145, Potassium Level 3.2L, Carbon Dioxide Level 27, Anion Gap 7, Blood Urea Nitrogen 23H, Creatinine 0.71, Estimat Glomerular Filtration Rate 94, BUN/Creatinine Ratio 32, Glucose Level 99, Calcium Level 8.7, Corrected Calcium 9.7, Magnesium Level 1.9, Total Bilirubin 0.6, Aspartate Amino Transf (AST/SGOT) 16, Alanine Aminotransferase (ALT/SGPT) 24, Alkaline Phosphatase 110, Total Protein 5.7L, Albumin 2.8L Microbiology 03/28/23 MRSA Screen - Final, Complete MRSA not isolated 03/28/23 Blood Culture - Preliminary, Resulted No growth 03/28/23 Urine Culture - Final, Complete Aerococcus urinaehominis Mixed Bacterial Annmarie Assessment/Plan Assessment/Plan Assess & Plan/Chief Complaint Assessment: Sepsis Pneumonia Complicated UTI Chronic debility Advanced age CLL known dx confirmed by son [place] Dysphagia Plan: Broad-spectrum antibiotics Fourth floor Supportive care DC ARSALAN Thorne DO Apr 01, 2023 06:10
[2023-04-01 06:22] LABS: WHITE BLOOD COUNT 63.5 10^3/uL (4.3-11.0)
[2023-04-01 07:38] VITALS: BP 114/59
[2023-04-01] MEDS: DOCUSATE SODIUM 100 MG (COLACE) CAP PO SCH (08:18)
--- NOTE | 2023-04-01 08:42 | Speech Therapy Progress Note ---
Therapy Progress Note ST attempted contact with the RN regarding dysphagia concerns at [phone] via telephone. At this time, no answer was received. The clinician will contact attempts to inquire about swallowing safety. If oropharyngeal swallowing concerns are present, please place a consult for speech pathology services. Thank you. SILVINO SANDOVAL Apr 01, 2023 08:42
--- NOTE | 2023-04-01 11:29 | Physical Therapy Daily Note ---
PT Daily Note-Current Subjective Patient agrees to therapy. Pain Section J - Health Conditions 1. Rarely or not at all 2. Occasionally 3. Frequently 4. Almost constantly 8. Unable to answer Pain Effect on Sleep: 8 Pain Interference with Therapy: 8 Pain Interference w/Day-to-Day: 8 Transfers SCALE: Activities may be completed with or without assistive devices. 9-Pcimdxyvmy-rabozpq completes the activity by him/herself with no assistance from a helper. 5-Set-up or Clean-up Assistance-helper sets up or cleans up; patient completes activity. [place] assists only prior to or following the activity. 4-Supervision or Touching Assistance-helper provides verbal cues and/or touching/steadying and/or contact guard assistance as patient completes activity. Assistance may be provided throughout the activity or intermittently. 3-Partial/Moderate Assistance-helper does LESS THAN HALF the effort. [place] lifts, holds or supports trunk or limbs, but provides less than half the effort. 2-Substantial/Maximal Assistance-helper does MORE THAN HALF the effort. [place] lifts or holds trunk or limbs and provides more than half the effort. 7-Vhnkqlxtf-fbvklp does ALL the effort. Patient does none of the effort to complete the activity. Or, the assistance of 2 or more helpers is required for the patient to complete the activity. If activity was not attempted, code reason: 7-Patient Refused. 9-Not Applicable-not attempted and the patient did not perform the activity before the current illness, exacerbation or injury. 10-Not Attempted due to Environmental Limitations-(lack of equipment, weather restraints, etc.). 88-Not Attempted due to Medical Conditions or Safety Concerns. Lying to Sitting/Side of Bed(Q: 1 Sit to Stand (QC): 1 Chair/Htg-wo-Waarh Xfer(QC): 1 Exercises Seated Therapy Exercises: Long arc quads Seated Reps: 15 Assessment Patient remains dependent assist with all mobility but is able to sit EOB CGA. Dependent assist with sit to stand and SPT bed to recliner with chair alarm activated. RN notified that patient is up in recliner. PT Surface Water Technician Goals Alf Goals PT Alf Goals Time Frame: Apr 19, 2023 Roll Left & Right (QC): 3 Sit to Lying (QC): 3 Lying-Sitting on Side/Bed(QC): 3 Sit to Stand (QC): 3 Chair/Jpr-vl-Slthq Xfer(QC): 3 Toilet Transfer (QC): 3 Walk 10 feet (QC): 3 Walk 50ft with 2 Turns (QC): 3 PT Plan Treatment/Plan Treatment Plan: Continue Plan of Care Treatment Plan: Bed Mobility, Education, Functional Activity [place], Functional Strength, Gait, Safety, Therapeutic Exercise, Transfers Treatment Duration: Apr 19, 2023 Frequency: 5 times per week Estimated Hrs Per Day: .25 hour per day Time Time In: 1046 Time Out: 1056 DATE: Apr 01, 2023 Total Billed Treatment Time: 10 Total Billed Treatment 1 visit FA 10 min LUCILLE OTERO PT Apr 01, 2023 11:29
[2023-04-01 11:33] VITALS: BP 128/58
[2023-04-01] MEDS ORDERED: POLY17PO6 PO (13:01)
[2023-04-01] MEDS ORDERED: GLUC100016 PO (13:01)
[2023-04-01] MEDS ORDERED: FLUT15.845 NS (13:01)
[2023-04-01] MEDS ORDERED: CARB1DRO51 OP (13:01)
[2023-04-01] MEDS ORDERED: ENOX40DI8 SC (13:01)
[2023-04-01] MEDS ORDERED: MULT-422 PO (13:01)
[2023-04-01] MEDS ORDERED: CEFD300C3 PO (13:01)
[2023-04-01] MEDS ORDERED: MENT120C2 TP (13:01)
[2023-04-01] MEDS ORDERED: DALF10TA3 PO (13:01)
[2023-04-01] MEDS ORDERED: ACET-2267 PO (13:01)
[2023-04-01] MEDS ORDERED: BACL20TA PO (13:01)
--- NOTE | 2023-04-01 13:02 | Discharge Summary ---
Diagnosis/Chief Complaint Date of Admission Mar 28, 2023 at 16:20 Date of Discharge Discharge Date: Apr 01, 2023 Discharge Diagnosis Sepsis UTI PNA MS CLL Discharge Summary Discharge Physical Examination Allergies: Coded Allergies: Iodinated Contrast Media (Verified Allergy, Unknown, 03/28/23) Vitals & I&Os Vital Signs Date Time Temp Pulse Resp B/P (MAP) Pulse Ox O2 Delivery O2 Flow Rate FiO2 04/01/23 15:10 36.2 87 20 128/58 94 Room Air 0.00 03/31/23 23:39 21 General Appearance: Alert, Oriented X3, Cooperative, Other (poor recall) Respiratory: Clear to Auscultation Cardiovascular: Regular Rate Psych/Mental Status: Mental Status NL Hospital Course Was the Problem List Reviewed?: Yes Hospital course: Patient had an uneventful hospital course after he was admitted for 5 days started for UTI and PNA and was on the ICU considered to have severe sepsis but 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 He responded to IV antibiotics he was transition to oral antibiotics and he was [facility] overall prog nosis poor given his multiple sclerosis and CLL. Labs (last 24 hrs) Laboratory Tests 03/28/23 10:27: Urine Color YELLOW, Urine Clarity TURBID, Urine pH 6.0, Urine Specific [place] 1.025H, Urine Protein 2+H, Urine Glucose (UA) NEGATIVE, Urine Ketones TRACEH, Urine Nitrite NEGATIVE, Urine Bilirubin NEGATIVE, Urine Urobilinogen 1.0, Urine Leukocyte Esterase 2+H, Urine RBC (Auto) 3+H, Urine RBC NONE, Urine WBC TNTCH, Urine Squamous Epithelial Cells 2-5, Urine Crystals NONE, Urine Bacteria LARGEH, Urine Casts NONE, Urine Mucus NEGATIVE, Urine Culture Indicated YES 03/28/23 10:32: White Blood Count 64.9*H, Red Blood Count 3.41L, Hemoglobin 10.9L, Hematocrit 34L, Mean Corpuscular Volume 99, Mean Corpuscular Hemoglobin 32, Mean Corpuscular Hemoglobin Concent 32, Red Cell Distribution Width 12.3, Platelet Count 281, Mean Platelet Volume 9.9, Immature Granulocyte % (Auto) 0, Neutrophils (%) (Auto) 17L, Lymphocytes (%) (Auto) 80H, Monocytes (%) (Auto) 2, Eosinophils (%) (Auto) 0, Basophils (%) (Auto) 0, Neutrophils # (Auto) 10.8H, Lymphocytes # (Auto) 52.1H, Monocytes # (Auto) 1.6H, Eosinophils # (Auto) 0.1, Basophils # (Auto) 0.1, Immature Granulocyte # (Auto) 0.3H, Neutrophils % (Manual) 28, Lymphocytes % (Manual) 68, Monocytes % (Manual) 2, Eosinophils % (Manual) 2, Prothrombin Time 13.9, INR Comment 1.0, Activated Partial Thromboplast Time 34, Sodium Level 142, Potassium Level 4.1, Chloride Level 106, Carbon Dioxide Level 23, Anion Gap 13, Blood Urea Nitrogen 29H, Creatinine 0.82, Estimat Glomerular Filtration Rate 90, BUN/Creatinine Ratio 35, Glucose Level 149H, Lactic Acid Level 1.99, Calcium Level 9.3, Corrected Calcium 9.6, Magnesium Level 2.2, Total Bilirubin 0.7, Aspartate Amino Transf (AST/SGOT) 35H, Alanine Aminotransferase (ALT/SGPT) 45, Alkaline Phosphatase 174H, Troponin I < 0.30, Total Protein 7.5, Albumin 3.6 03/29/23 04:07: White Blood Count 52.8*H, Red Blood Count 3.04L, Hemoglobin 9.8L, Hematocrit 30L , Mean Corpuscular Volume 100H, Mean Corpuscular Hemoglobin 32, Mean Corpuscular Hemoglobin Concent 32, Red Cell Distribution Width 12.5, Platelet Count 277, Mean Platelet Volume 10.3, Immature Granulocyte % (Auto) 1, Neutrophils (%) (Auto) 15L, Lymphocytes (%) (Auto) 81H, Monocytes (%) (Auto) 2, Eosinophils (%) (Auto) 1, Basophils (%) (Auto) 0, Neutrophils # (Auto) 8.2H, Lymphocytes # (Auto) 42.9H, Monocytes # (Auto) 1.2H, Eosinophils # (Auto) 0.3, Basophils # (Auto) 0.1, Immature Granulocyte # (Auto) 0.3H, Neutrophils % (Manual) 21, Lymphocytes % (Manual) 76, Monocytes % (Manual) 3, Eosinophils % (Manual) 0, Sodium Level 144, Potassium Level 3.8, Chloride Level 112H, Carbon Dioxide Level 20L, Anion Gap 12, Blood Urea Nitrogen 24H, Creatinine 0.76, Estimat Glomerular Filtration Rate 92, BUN/Creatinine Ratio 32, Glucose Level 97, Calcium Level 8.8, Corrected Calcium 9.5, Magnesium Level 2.1, Total Bilirubin 0.6, Aspartate Amino Transf (AST/SGOT) 28, Alanine Aminotransferase (ALT/SGPT) 40, Alkaline Ph osphatase 129, Total Protein 6.2L, Albumin 3.1L, Basophils % (Manual) 0, Band Neutrophils 0, Smudge Cells MARKED, Percent Immature Platelet Fraction 3.1, Absolute Reticulocyte Count 32, Percent Reticulocyte Count 1.04, Phosphorus Level 3.6, Lactate Dehydrogenase 350H 03/29/23 19:52: Glucometer 144H 03/30/23 05:36: White Blood Count 74.4*H, Red Blood Count 3.25L, Hemoglobin 10.4L, Hematocrit 33L, Mean Corpuscular Volume 102H, Mean Corpuscular Hemoglobin 32, Mean Corpuscular Hemoglobin Concent 32, Red Cell Distribution Width 12.5, Platelet Count 357, Mean Platelet Volume 10.0, Immature Granulocyte % (Auto) 1, Neutrophils (%) (Auto) 31L, Lymphocytes (%) (Auto) 64H, Monocytes (%) (Auto) 3, Eosinophils (%) (Auto) 0, Basophils (%) (Auto) 0, Neutrophils # (Auto) 23.4H, Lymphocytes # (Auto) 48.0H, Monocytes # (Auto) 2.1H, Eosinophils # (Auto) 0.0, Basophils # (Auto) 0.1, Immature Granulocyte # (Auto) 0.9H, Sodium Level 144, Potassium Level 3.6, Chloride Level 111H, Carbon Dioxide Level 21, Anion Gap 12, Blood Urea Nitrogen 25H, Creatinine 1.34H, Estimat Glomerular Filtration Rate 54, BUN/Creatinine Ratio 19, Glucose Level 139H, Calcium Level 9.2, Corrected Calcium 9.8, Magnesium Level 2.2, Total Bilirubin 1.2H, Aspartate Amino Transf (AST/SGOT) 33, Alanine Aminotransferase (ALT/SGPT) 41, Alkaline Phosphatase 158H , Total Protein 6.7, Albumin 3.3 03/31/23 05:45: White Blood Count 70.2*H, Red Blood Count 2.75L, Hemoglobin 9.0L, Hematocrit 28L , Mean Corpuscular Volume 101H, Mean Corpuscular Hemoglobin 33, Mean Corpuscular Hemoglobin Concent 33, Red Cell Distribution Width 12.4, Platelet Count 329, Mean Platelet Volume 9.8, Immature Granulocyte % (Auto) 1, Neutrophils (%) (Auto) 25L, Lymphocytes (%) (Auto) 72H, Monocytes (%) (Auto) 2, Eosinophils (%) (Auto) 1, Basophils (%) (Auto) 0, Neutrophils # (Auto) 17.2H, Lymphocytes # (Auto) 50.6H, Monocytes # (Auto) 1.2H, Eosinophils # (Auto) 0.6H, Basophils # (Auto) 0.1, Immature Granulocyte # (Auto) 0.5H, Sodium Level 145, Potassium Level 3.2L, Chloride Level 111H, Carbon Dioxide Level 25, Anion Gap 9, Blood Urea Nitrogen 25H, Creatinine 0.79, Estimat Glomerular Filtration Rate 91, BUN/Creatinine Ratio 32, Glucose Level 100, Calcium Level 9.0, Corrected Calcium 9.9, Magnesium Level 1.9, Total Bilirubin 0.7, Aspartate Amino Transf (AST/SGOT) 20, Alanine Aminotransferase (ALT/SGPT) 30, Alkaline Phosphatase 120, Total Protein 5.9L, Albumin 2.9L 04/01/23 05:38: White Blood Count 63.5*H, Red Blood Count 2.69L, Hemoglobin 8.7L, Hematocrit 27L , Mean Corpuscular Volume 101H, Mean Corpuscular Hemoglobin 32, Mean Corpuscular Hemoglobin Concent 32, Red Cell Distribution Width 12.2, Platelet Count 361, Mean Platelet Volume 9.4, Immature Granulocyte % (Auto) 1, Neutrophils (%) (Auto) 18L, Lymphocytes (%) (Auto) 79H, Monocytes (%) (Auto) 2, Eosinophils (%) (Auto) 1, Basophils (%) (Auto) 0, Neutrophils # (Auto) 11.6H, Lymphocytes # (Auto) 49.9H, Monocytes # (Auto) 1.0, Eosinophils # (Auto) 0.5H, Basophils # (Auto) 0.1, Immature Granulocyte # (Auto) 0.4H, Sodium Level 145, Potassium Level 3.2L, Chloride Level 111H, Carbon Dioxide Level 27, Anion Gap 7, Blood Urea Nitrogen 23H, Creatinine 0.71, Estimat Glomerular Filtration Rate 94, BUN/Creatinine Ratio 32, Glucose Level 99, Calcium Level 8.7, Corrected Calcium 9.7, Magnesium Level 1.9, Total Bilirubin 0.6, Aspartate Amino Transf (AST/SGOT) 16, Alanine Aminotransferase (ALT/SGPT) 24, Alkaline Phosphatase 110, Total Protein 5.7L, Albumin 2.8L Microbiology 03/28/23 MRSA Screen - Final, Complete MRSA not isolated 03/28/23 Blood Culture - Preliminary, Resulted No growth 03/28/23 Urine Culture - Final, Complete Aerococcus urinaehominis Mixed Bacterial Annmarie Pending Labs Microbiology Date/Time Source Procedure Growth Status 03/28/23 16:45 Nasal MRSA Screen - Final MRSA not isolated Complete 03/28/23 10:35 Peripheral Lt Hand Blood Culture - Preliminary No growth Resulted 03/28/23 10:27 Urine Clean Catch Urine Culture - Final Aerococcus urinaehominis Mixed Bacterial Annmarie Complete 03/28/23 10:20 Peripheral Lt Hand Blood Culture - Preliminary No growth Resulted Laboratory Tests 03/28/23 10:27: Urine Color YELLOW, Urine Clarity TURBID, Urine pH 6.0, Urine Specific [place] 1.025, Urine Protein 2+, Urine Glucose (UA) NEGATIVE, Urine Ketones TRACE, Urine Nitrite NEGATIVE, Urine Bilirubin NEGATIVE, Urine Urobilinogen 1.0, Urine Leukocyte Esterase 2+, Urine RBC (Auto) 3+, Urine RBC NONE, Urine WBC TNTC, Ur ine Squamous Epithelial Cells 2-5, Urine Crystals NONE, Urine Bacteria LARGE, Urine Casts NONE, Urine Mucus NEGATIVE, Urine Culture Indicated YES 03/28/23 10:32: White Blood Count 64.9, Red Blood Count 3.41, Hemoglobin 10.9, Hematocrit 34, Mean Corpuscular Volume 99, Mean Corpuscular Hemoglobin 32, Mean Corpuscular Hemoglobin Concent 32, Red Cell Distribution Width 12.3, Platelet Count 281, Mean Platelet Volume 9.9, Immature Granulocyte % (Auto) 0, Neutrophils (%) (Auto) 17, Lymphocytes (%) (Auto) 80, Monocytes (%) (Auto) 2, Eosinophils (%) (Auto) 0, Basophils (%) (Auto) 0, Neutrophils # (Auto) 10.8, Lymphocytes # (Auto) 52.1, Monocytes # (Auto) 1.6, Eosinophils # (Auto) 0.1, Basophils # (Auto) 0.1, Immature Granulocyte # (Auto) 0.3, Neutrophils % (Manual) 28, Lymphocytes % (Manual) 68, Monocytes % (Manual) 2, Eosinophils % (Manual) 2, Prothrombin Time 13.9, INR Comment 1.0, Activated Partial Thromboplast Time 34, Sodium Level 142, Potassium Level 4.1, Chloride Level 106, Carbon Dioxide Level 23, Anion Gap 13, Blood Urea Nitrogen 29, Creatinine 0.82, Estimat Glomerular Filtration Rate 90, BUN/Creatinine Ratio 35, Glucose Level 149, Lactic Acid Level 1.99, Calcium Level 9.3, Corrected Calcium 9.6, Magnesium Level 2.2, Total Bilirubin 0.7, Aspartate Amino Transf (AST/SGOT) 35, Alanine Aminotransferase (ALT/SGPT) 45, Alkaline Phosphatase 174, Troponin I < 0.30, Total Protein 7.5, Albumin 3.6 03/29/23 04:07: White Blood Count 52.8, Red Blood Count 3.04, Hemoglobin 9.8, Hematocrit 30, Mean Corpuscular Volume 100, Mean Corpuscular Hemoglobin 32, Mean Corpuscular Hemoglobin Concent 32, Red Cell Distribution Width 12.5, Platelet Count 277, Mean Platelet Volume 10.3, Immature Granulocyte % (Auto) 1, Neutrophils (%) (Auto) 15, Lymphocytes (%) (Auto) 81, Monocytes (%) (Auto) 2, Eosinophils (%) (Auto) 1, Basophils (%) (Auto) 0, Neutrophils # (Auto) 8.2, Lymphocytes # (Auto) 42.9, Monocytes # (Auto) 1.2, Eosinophils # (Auto) 0.3, Basophils # (Auto) 0.1, Immature Granulocyte # (Auto) 0.3, Neutrophils % (Manual) 21, Lymphocytes % (Manual) 76, Monocytes % (Manual) 3, Eosinophils % (Manual) 0, Sodium Level 144, Potassium Level 3.8, Chloride Level 112, Carbon Dioxide Level 20, Anion Gap 12, Blood Urea Nitrogen 24, Creatinine 0.76, Estimat Glomerular Filtration Rate 92, BUN/Creatinine Ratio 32, Glucose Level 97, Calcium Level 8.8, Corrected Calcium 9.5, Magnesium Level 2.1, Total Bilirubin 0.6, Aspartate Amino Transf (AST/SGOT) 28, Alanine Aminotransferase (ALT/SGPT) 40, Alkaline Phosphatase 129, Total Protein 6.2, Albumin 3.1, Basophils % (Manual) 0, Band Neutrophils 0, Smudge Cells MARKED, Percent Immature Platelet Fraction 3.1, Absolute Reticulocyte Count 32, Percent Reticulocyte Count 1.04, Phosphorus Level 3.6, Lactate Dehydrogenase 350 03/29/23 19:52: Glucometer 144 03/30/23 05:36: White Blood Count 74.4, Red Blood Count 3.25, Hemoglobin 10.4, Hematocrit 33, Mean Corpuscular Volume 102, Mean Corpuscular Hemoglobin 32, Mean Corpuscular Hemoglobin Concent 32, Red Cell Distribution Width 12.5, Platelet Count 357, Mean Platelet Volume 10.0, Immature Granulocyte % (Auto) 1, Neutrophils (%) (Auto) 31, Lymphocytes (%) (Auto) 64, Monocytes (%) (Auto) 3, Eosinophils (%) (Auto) 0, Basophils (%) (Auto) 0, Neutrophils # (Auto) 23.4, Lymphocytes # (Auto) 48.0, Monocytes # (Auto) 2.1, Eosinophils # (Auto) 0.0, Basophils # (Auto) 0.1, Immature Granulocyte # (Auto) 0.9, Sodium Level 144, Potassium Level 3.6, Chloride Level 111, Carbon Dioxide Level 21, Anion Gap 12, Blood Urea Nitrogen 25, Creatinine 1.34, Estimat Glomerular Filtration Rate 54, BUN/Creatinine Ratio 19, Glucose Level 139, Calcium Level 9.2, Corrected Calcium 9.8, Magnesium Level 2.2, Total Bilirubin 1.2, Aspartate Amino Transf (AST/SGOT) 33, Alanine Aminotransferase (ALT/SGPT) 41, Alkaline Phosphatase 158, Total Protein 6.7, Albumin 3.3 03/31/23 05:45: White Blood Count 70.2, Red Blood Count 2.75, Hemoglobin 9.0, Hematocrit 28, Mean Corpuscular Volume 101, Mean Corpuscular Hemoglobin 33, Mean Corpuscular Hemoglobin Concent 33, Red Cell Distribution Width 12.4, Platelet Count 329, Mean Platelet Volume 9.8, Immature Granulocyte % (Auto) 1, Neutrophils (%) (Auto) 25, Lymphocytes (%) (Auto) 72, Monocytes (%) (Auto) 2, Eosinophils (%) (Auto) 1, Basophils (%) (Auto) 0, Neutrophils # (Auto) 17.2, Lymphocytes # (Auto) 50.6, Monocytes # (Auto) 1.2, Eosinophils # (Auto) 0.6, Basophils # (Auto) 0.1, Immature Granulocyte # (Auto) 0.5, Sodium Level 145, Potassium Level 3.2, Chloride Level 111, Carbon Dioxide Level 25, Anion Gap 9, Blood Urea Nitrogen 25, Creatinine 0.79, Estimat Glomerular Filtration Rate 91, BUN/Creatinine Ratio 32, Glucose Level 100, Calcium Level 9.0, Corrected Calcium 9.9, Magnesium Level 1.9, Total Bilirubin 0.7, Aspartate Amino Transf (AST/SGOT) 20, Alanine Aminotransferase (ALT/SGPT) 30, Alkaline Phosphatase 120, Total Protein 5.9, Albumin 2.9 04/01/23 05:38: White Blood Count 63.5, Red Blood Count 2.69, Hemoglobin 8.7, Hematocrit 27, Mean Corpuscular Volume 101, Mean Corpuscular Hemoglobin 32, Mean Corpuscular Hemoglobin Concent 32, Red Cell Distribution Width 12.2, Platelet Count 361, Mean Platelet Volume 9.4, Immature Granulocyte % (Auto) 1, Neutrophils (%) (Auto) 18, Lymphocytes (%) (Auto) 79, Monocytes (%) (Auto) 2, Eosinophils (%) (Auto) 1, Basophils (%) (Auto) 0, Neutrophils # (Auto) 11.6, Lymphocytes # (Auto) 49.9, Monocytes # (Auto) 1.0, Eosinophils # (Auto) 0.5, Basophils # (Auto) 0.1, Immature Granulocyte # (Auto) 0.4, Sodium Level 145, Potassium Level 3.2, Chloride Level 111, Carbon Dioxide Level 27, Anion Gap 7, Blood Urea Nitrogen 23, Creatinine 0.71, Estimat Glomerular Filtration Rate 94, BUN/Creatinine Ratio 32, Glucose Level 99, Calcium Level 8.7, Corrected Calcium 9.7, Magnesium Level 1.9, Total Bilirubin 0.6, Aspartate Amino Transf (AST/SGOT) 16, Alanine Aminotransferase (ALT/SGPT) 24, Alkaline Phosphatase 110, Total Protein 5.7, Albumin 2.8 Discharge Home Medications: Active Scripts Active Cefdinir 300 Mg Capsule 300 Mg PO BID Enoxaparin Sodium 40 Mg/0.4 Ml Syringe 40 Mg SC Q24H Menthol 4 % Cream..g. 1 Gm TP Q8H PRN Baclofen 20 Mg Tablet 20 Mg PO Q6H PRN Miralax (Polyethylene Glycol 3350) 17 Gram Powd.pack 17 Gm PO Q12H PRN Glucosamine (Glucosamine Sulfate 2Kcl) 1,000 Mg Tablet 1,000 Mg PO BID Dalfampridine ER (Dalfampridine) 10 Mg Tab.er.12h 10 Mg PO BID Carboxymethylcellulose Sodium 0.5 % Droperette 1 Each OP BID Tylenol Extra Strength (Acetaminophen) 500 Mg Tablet 1,000 Mg PO BID TAKES 2 (500MG) TABS One Daily Plus Minerals (Multivitamin with Minerals) 1 Each Tablet 1 Each PO DAILY Fluticasone Propionate 50 Mcg/Actuation Ida.susp 1 Ida NS DAILY Instructions to patient/family Please see electronic discharge instructions given to patient. ARSALAN PARSONS DO Apr 01, 2023 13:02
--- NOTE | 2023-04-01 13:04 | Discharge Inst-Skilled Nursing ---
Discharge Inst-Skilled NF Reconcile Patient Problems Problems Reviewed?: Yes Chief Complaint Chief complaint: Sepsis HPI: This is a 78-year-old male long-term resident at [facility] in [place] who presented with hypoxia and altered mental status found to have pneumonia and UTI with severely elevated white count. Patient was placed on broad-spectrum antibiotics to cover for facility acquired organisms. Sinus rhythm at bedside. Patient appears to be very thin. Patient denies any pain. Patient Instructions Patient Problems: UTI PNA MS CLL Consult/Follow Up/Orders Follow Up Appt.: PCP 1 week Skilled NF Admit to: Certification (SNF) I certify that SNF services are required to be given on an inpatient basis because of the above named patient's need for custodial care on a continuing basis for the conditions(s) for which he/she was receiving inpatient hospital services prior to his/her transfer to the SNF. Half-Way Facility Order: Nursing Services, Fire Control System Installer-Evaluate & Treat, Physical Therapy-Evaluate & Treat, Speech Language-Evaluate & Treat Oxygen Delivery Method: Room Air Discharge Diet: No Restrictions Resuscitation Status: Full Code New & Resume Previous Orders New Medications: Cefdinir (Cefdinir) 300 Mg Capsule 300 MG PO BID, #10 CAP Enoxaparin Sodium (Enoxaparin Sodium) 40 Mg/0.4 Ml Syringe 40 MG SC Q24H, #14 SYRINGE Continued Medications: Acetaminophen (Tylenol Extra Strength) 500 Mg Tablet 1000 MG PO BID, #60 TAB (This prescription has been renewed) TAKES 2 (500MG) TABS Baclofen (Baclofen) 20 Mg Tablet 20 MG PO Q6H PRN for MUSCLE SPASMS, #30 TAB (This prescription has been renewed) Carboxymethylcellulose Sodium (Carboxymethylcellulose Sodium) 0.5 % Droperette 1 EACH OP BID, #1 DROP (This prescription has been renewed) Dalfampridine (Dalfampridine ER) 10 Mg Tab.er.12h 10 MG PO BID, #60 TAB (This prescription has been renewed) Fluticasone Propionate (Fluticasone Propionate) 50 Mcg/Actuation [place].susp 1 SPRAY NS DAILY, #1 EACH (This prescription has been renewed) Glucosamine Sulfate 2Kcl (Glucosamine) 1,000 Mg Tablet 1000 MG PO BID, #40 TAB (This prescription has been renewed) Menthol (Menthol) 4 % Cream..g. 1 GM TP Q8H PRN for PAIN, #60 EA (This prescription has been renewed) Multivitamin with Minerals (One Daily Plus Minerals) 1 Each Tablet 1 EACH PO DAILY, #30 TAB (This prescription has been renewed) Polyethylene Glycol 3350 (Miralax) 17 Gram Powd.pack 17 GM PO Q12H PRN for CONSTIPATION-1ST LINE, #30 EACH (This prescription has been renewed) Nelly Moses Apr 01, 2023 13:03 NELLY MOSES DO Apr 01, 2023 13:04
[2023-04-01 15:10] VITALS: BP 128/58
== END 2023-04-01 15:11 | DRG 871 ==
LOC: EDUNIT# 10:12 → ER FS 10:14 → ICU 16:20 → 4TH 03-29 13:59
PROVIDERS: ADMIT Internal Medicine; ATTEND Internal Medicine
DX: A41.9 Sepsis, unspecified organism (principal); J18.9 Pneumonia, unspecified organism; N39.0 Urinary tract infection, site not specified; C91.10 Chronic lymphocytic leukemia of B-cell type not having achieved remission; R65.20 Severe sepsis without septic shock; G35 Multiple sclerosis; N40.0 Benign prostatic hyperplasia without lower urinary tract symptoms; I10 Essential (primary) hypertension; M10.9 Gout, unspecified; R53.81 Other malaise; R13.10 Dysphagia, unspecified; R09.02 Hypoxemia
CPT/HCPCS: 36415; 70450; 71045; 80053; 81000; 82947; 83605; 83615; 83735; 84100; 84484; 85007; 85025; 85027; 85045; 85055; 85610; 85730; 87040; 87081; 87088; 93005; 94664

== ENCOUNTER → 2023-04-21 | Outpatient (CLI) | payer MEDICARE ==
[~2023-04-21] MED LIST: ACET-2267 PO; BACL20TA PO; CARB1DRO51 OP; CEFD300C3 PO; DALF10TA3 PO; ENOX40DI8 SC; FLUT15.845 NS; GLUC100016 PO; MENT120C2 TP; MULT-422 PO; POLY17PO6 PO
[2023-04-21 12:53] LABS: BILIRUBIN,URINE NEGATIVE (NEGATIVE); CLARITY,URINE TURBID; COLOR,URINE ORANGE; GLUCOSE, URINE (UA) NEGATIVE (NEGATIVE); KETONES,URINE NEGATIVE (NEGATIVE); LEUKOCYTE ESTERASE ,URINE 2+ (NEGATIVE); NITRITE,URINE POSITIVE (NEGATIVE); PH,URINE >=9.0 (5-9); PROTEIN,URINE 3+ (NEGATIVE)
[2023-04-21 13:30] LABS: BACTERIA,URINE LARGE /HPF; SQUAMOUS EPITHELIAL CELL,UR RARE /HPF; WBC,URINE 25-50 /HPF
[2023-04-21 13:31] LABS: TRIPLE PHOSPHATE CRYSTAL,UR FEW /LPF
== END ==
PROVIDERS: ATTEND Family Medicine
DX: N30.01 Acute cystitis with hematuria (principal)
CPT/HCPCS: 81000; 87077; 87088

== ENCOUNTER → 2023-05-05 | Outpatient (CLI) | payer MEDICARE ==
[2023-05-05 19:30] LABS: BILIRUBIN,URINE NEGATIVE (NEGATIVE); CLARITY,URINE TURBID; COLOR,URINE YELLOW; GLUCOSE, URINE (UA) NEGATIVE (NEGATIVE); KETONES,URINE NEGATIVE (NEGATIVE); LEUKOCYTE ESTERASE ,URINE 2+ (NEGATIVE); NITRITE,URINE POSITIVE (NEGATIVE); PH,URINE 8.5 (5-9); PROTEIN,URINE 3+ (NEGATIVE)
[2023-05-05 19:51] LABS: BACTERIA,URINE LARGE /HPF; WBC,URINE 50-100 /HPF
[2023-05-05 19:52] LABS: TRIPLE PHOSPHATE CRYSTAL,UR MODERATE /LPF
== END ==
PROVIDERS: ATTEND Family Medicine
DX: N30.01 Acute cystitis with hematuria (principal)
CPT/HCPCS: 81000; 87088